=== PATIENT | male | born 1970 | race Caucasian/White ===

== ENCOUNTER → 2019-11-27 | Outpatient (CLI) | payer BC | END | disposition home or self-care (01) | LOC: CFH 07:39 | PROVIDERS: ATTEND Internal Medicine Cardiovascular Disease | DX: I37.1 Nonrheumatic pulmonary valve insufficiency (principal); M45.9 Ankylosing spondylitis of unspecified sites in spine; Z82.49 Family history of ischemic heart disease and other diseases of the circulatory system | CPT/HCPCS: 93306; 93356 ==

== ENCOUNTER → 2019-11-28 | Outpatient (CLI) | payer BC | END | disposition home or self-care (01) | LOC: CFH 12:05 | PROVIDERS: ATTEND Internal Medicine Cardiovascular Disease | DX: R07.9 Chest pain, unspecified (principal); M45.9 Ankylosing spondylitis of unspecified sites in spine; Z82.49 Family history of ischemic heart disease and other diseases of the circulatory system | CPT/HCPCS: 78452; 93017; A9502 ==

== ENCOUNTER → 2019-12-22 | Outpatient (CLI) | payer BC ==
[~2019-12-22] MED LIST: OMNIPAQUE 350 MG/ML, 100ML BOTTLE ONE
== END | disposition home or self-care (01) ==
LOC: CFH 09:42
PROVIDERS: ATTEND Internal Medicine Cardiovascular Disease
DX: R07.9 Chest pain, unspecified (principal); M45.9 Ankylosing spondylitis of unspecified sites in spine; Z82.49 Family history of ischemic heart disease and other diseases of the circulatory system
CPT/HCPCS: 71275; Q9967

== ENCOUNTER 2020-01-27 14:29 | Emergency (ER) | payer BC ==
[~2020-01-27] VITALS: Ht 175.3 cm; Wt 92.3 kg
--- NOTE | 2020-01-27 15:05 | NUR ---
PT UPRIGHT ON GURNEY AWAKE & COMFORTABLE, RESPONDS APPROP TO STAFF, NAD, COMFORT MEASURES PROVIDED, AT BS, CALL LIGHT WITHIN REACH.
[2020-01-27 16:04] VITALS: BP 118/76
--- NOTE | 2020-01-27 16:04 | NUR ---
PT REMAIN UPRIGHT ON GURNEY AWAKE & COMFORTABLE, RESPONDS APPROP TO STAFF, NAD, COMFORT MEASURES PROVIDED, AT BS, CALL LIGHT WITHIN REACH.
--- NOTE | 2020-01-27 17:58 | NUR ---
Patient given crutches/knee immobilizer & discharge instructions and they have confirmed that they understand the instructions. Patient ambulatory with steady gait via crutch use.
== END 2020-01-27 17:59 | disposition home or self-care (01) ==
LOC: ED 16:19
DX: G89.11 Acute pain due to trauma (principal); M25.561 Pain in right knee; M25.461 Effusion, right knee; M79.89 Other specified soft tissue disorders; X58.XXXA Exposure to other specified factors, initial encounter; Y93.89 Activity, other specified; Y92.69 Other specified industrial and construction area as the place of occurrence of the external cause; Y99.0 Civilian activity done for income or pay
CPT/HCPCS: 29505; 99284

== ENCOUNTER 2020-08-24 12:50 | Emergency (ER) | payer BC ==
[~2020-08-24] VITALS: Ht 175.3 cm; Wt 93.6 kg
--- NOTE | 2020-08-24 13:05 | NUR ---
registered medical transcriptionist: EKG completed in triage
--- NOTE | 2020-08-24 14:05 | NUR ---
PT LAYING ON GURNEY WITH EYES CLOSED FOR COMFORT, RESPONDS APPROP TO STAFF, NAD, COMFORT MEASURES PROVIDED, AT BS, CALL LIGHT WITHIN REACH.
[2020-08-24] MEDS ORDERED: DEXAMETHASONE 4 MG/ML, 1ML ONE (14:08)
[2020-08-24] MEDS ORDERED: ONDANSETRON 2MG/ML, 2ML ONE (14:08)
[2020-08-24] MEDS ORDERED: MECLIZINE CHEWABLE 25 MG TAB ONE (14:08)
[2020-08-24] MEDS ORDERED: DEXAMETHASONE 4 MG/ML, 1ML IVPush ONE (14:30)
[2020-08-24] MEDS ORDERED: ONDANSETRON 2MG/ML, 2ML IVPush ONE (14:30)
[2020-08-24] MEDS ORDERED: MECLIZINE CHEWABLE 25 MG TAB PO ONE (14:30)
[2020-08-24 14:35] LABS: ANION GAP 8 mmol/L (5-15); CALCIUM 9.3 mg/dL (8.5-10.1); CHLORIDE 106 mmol/L (98-107)
[2020-08-24 14:37] LABS: BASOPHILS % (AUTO) 1 % (0-1); EOSINOPHILS % (AUTO) 1 % (1-7); LYMPHOCYTES % (AUTO) 13 % (22-44); MEAN CORPUSCULAR HEMOGLOBIN 29.1 pg (27.5-34.5); MEAN CORPUSCULAR HGB CONC 33.9 g/dL (33.2-36.2); MEAN PLATELET VOLUME 9.5 fL (7.4-10.4); MONOCYTES % (AUTO) 12 % (2-9); NEUTROPHILS % (AUTO) 74 % (42-75); PLATELET COUNT 152 x10^3/uL (130-400); RED BLOOD COUNT 5.27 x10^6/uL (4.38-5.82); RED CELL DISTRIBUTION WIDTH 12.8 % (9.4-14.8)
[2020-08-24 14:53] LABS: CREATININE 1.05 mg/dL (0.7-1.3)
[2020-08-24 14:54] LABS: MD NO
--- NOTE | 2020-08-24 15:03 | NUR ---
PT UPRIGHT ON GURNEY AWAKE & COMFORTABLE AFTER MEDS- DENIES DIZZINESS & NAUSEA, RESPONDS APPROP TO STAFF, NAD, NO NEEDS AT THIS TIME, AT BS, CALL LIGHT WITHIN REACH.
[2020-08-24 15:54] VITALS: BP 137/68
--- NOTE | 2020-08-24 15:56 | NUR ---
Patient given discharge instructions and Rx, they have confirmed that they understand the instructions. Patient ambulatory with steady gait.
== END 2020-08-24 16:01 | disposition home or self-care (01) ==
LOC: ED 15:55
DX: H92.02 Otalgia, left ear (principal); R51.9 Headache, unspecified; R42 Dizziness and giddiness; R94.31 Abnormal electrocardiogram [ECG] [EKG]
CPT/HCPCS: 36415; 80048; 85025; 93005; 96374; 96375; 99284; J1100; J2405